=== PATIENT | male | born 1980 | race African-American/Black ===

== ENCOUNTER 2017-06-12 13:44 | Emergency (ER) | payer OTHER ==
[~2017-06-12] VITALS: Ht 188 cm; Wt 62.5 kg
[2017-06-12] MEDS ORDERED: KETOROLAC 30 MG/1 ML IM ONE (14:30)
[2017-06-12] MEDS ORDERED: KETOROLAC 30 MG/1 ML ONE (14:44)
[2017-06-12 15:47] VITALS: BP 120/79
== END 2017-06-12 15:51 | disposition home or self-care (01) ==
LOC: ED 15:14
DX: R09.1 Pleurisy (principal)
CPT/HCPCS: 71020; 93005; 96372; 99284; J1885